=== PATIENT | male | born 1995 | race Caucasian/White ===

== ENCOUNTER 2022-02-12 16:39 | Emergency (ER) | payer OTHER ==
[2022-02-12 17:18] VITALS: TEMP 98
--- NOTE | 2022-02-12 22:03 | ED ---
Neuro HPI - General Chief Complaint: Neuro Symptoms/Deficit Stated Complaint: numbness feet/hands Time Seen by Provider: 02/12/22 22:00 Source: patient, RN notes reviewed, old records reviewed Mode of arrival: ambulatory Limitations: no limitations - History of Present Illness Is the patient presenting with stroke symptoms?: No -: week(s) Initial Comments: This is a 26-year-old male to the ER for evaluation presents today for evaluation of nonspecific neurological lanes. He has no medical history takes no medications does not drink or smoke. Patient comes in with hand and feet and leg paresthesia numbness and feeling. Able to walk and amply without difficulty. Recent losses job going to increased stress. Patient presents with months of these symptoms and presents here today for evaluation. No headache chest pain shortness breath or abdominal pain. No other complaints Location: left arm, right arm, left leg, right leg History of same: Yes Place: home Severity: mild Quality: numb, tingling Improves With: none Worsens With: none On Anticoagulants: No Context: gradual onset Associated Symptoms: denies other symptoms Treatments Prior to Arrival: none - Related Data Allergies/Adverse Reactions: Allergies Allergy/AdvReac Type Severity Reaction Status Date / Time No Known Allergies Allergy Verified 02/12/22 17:18 Review of Systems ROS Statement: Those systems with pertinent positive or pertinent negative responses have been documented in the HPI. ROS Other: All systems not noted in ROS Statement are negative. General Exam Limitations: no limitations General appearance: alert, in no apparent distress Head exam: Present: atraumatic, normocephalic, normal inspection Eye exam: Present: normal appearance, PERRL, EOMI. Absent: scleral icterus, conjunctival injection, periorbital swelling ENT exam: Present: normal exam, mucous membranes moist Neck exam: Present: normal inspection. Absent: tenderness, meningismus, lympha denopathy Respiratory exam: Present: normal lung sounds bilaterally. Absent: respiratory distress, wheezes, rales, rhonchi, stridor Cardiovascular Exam: Present: regular rate, normal rhythm, normal heart sounds. Absent: systolic murmur, diastolic murmur, rubs, gallop, clicks GI/Abdominal exam: Present: soft, normal bowel sounds. Absent: distended, tenderness, guarding, rebound, rigid Extremities exam: Present: normal inspection, full ROM, normal capillary refill. Absent: tenderness, pedal edema, joint swelling, calf tenderness Back exam: Present: normal inspection Neurological exam: Present: alert, oriented X3, CN II-XII intact Psychiatric exam: Present: normal affect, normal mood Skin exam: Present: warm, dry, intact, normal color. Absent: rash Stroke MDM - Lab Data Result diagrams: 02/12/22 22:15 02/12/22 22:15 Lab Results 02/12/22 02/12/22 Range/Units 22:15 22:15 WBC 8.3 (3.8-10.6) k/uL RBC 4.69 (4.30-5.90) m/uL Hgb 14.8 (13.0-17.5) gm/dL Hct 42.4 (39.0-53.0) % MCV 90.3 (80.0-100.0) fL MCH 31.5 (25.0-35.0) pg MCHC 34.9 (31.0-37.0) g/dL RDW 13.9 (11.5-15.5) % Plt Count 300 (150-450) k/uL MPV 8.2 Neutrophils % 55 % Lymphocytes % 30 % Monocytes % 6 % Eosinophils % 7 % Basophils % 1 % Neutrophils # 4.6 (1.3-7.7) k/uL Lymphocytes # 2.4 (1.0-4.8) k/uL Monocytes # 0.5 (0-1.0) k/uL Eosinophils # 0.6 (0-0.7) k/uL Basophils # 0.1 (0-0.2) k/uL Sodium 139 (137-145) mmol/L Potassium 4.4 (3.5-5.1) mmol/L Chloride 109 H (98-107) mmol/L Carbon Dioxide 22 (22-30) mmol/L Anion Gap 8 mmol/L BUN 20 (9-20) mg/dL Creatinine 0.80 (0.66-1.25) mg/dL Est GFR (CKD-EPI)AfAm >90 (>60 ml/min/1.73 sqM) Est GFR (CKD-EPI)NonAf >90 (>60 ml/min/1.73 sqM) Glucose 78 (74-99) mg/dL Calcium 8.9 (8.4-10.2) mg/dL Phosphorus 5.2 H (2.5-4.5) mg/dL Magnesium 2.4 H (1.6-2.3) mg/dL Total Bilirubin 0.6 (0.2-1.3) mg/dL AST 67 H (17-59) U/L ALT 161 H (4-49) U/L Alkaline Phosphatase 79 (38-126) U/L Total Protein 7.2 (6.3-8.2) g/dL Albumin 4.7 (3.5-5.0) g/dL - NIH Stroke Scale 1a. Level of Consciousness: (0) alert 1b. LOC Questions: (0) answers correctly 1c. LOC Commands: (0) performs tasks correctly 2. Best Gaze: (0) normal 3. Visual: (0) no visual loss 4. Facial Palsy: (0) normal symmetrical movement 5a. Motor Arm Left: (0) no drift 5b. Motor Arm Right: (0) no drift 6a. Motor Leg Left: (0) no drift 6b. Motor Leg Right: (0) no drift 7. Limb Ataxia: (0) absent 8. Sensory: (0) normal 9. Best Language: (0) no aphasia 10. Dysarthria: (0) normal 11. Extinction/Inattention: (0) no abnormality - Medical Decision Making 26 male to the emergency room for evaluation of nonspecific neurological complaint. We'll give follow-up with neurology. Patient has no focal neurological findings here in the ER and refusing CT scanning - Radiology Data Radiology results: pending (Refusing) Past Medical History Past Medical History: No Reported History History of Any Multi-Drug Resistant Organisms: None Reported Past Surgical History: No Surgical Hx Reported Past Psychological History: No Psychological Hx Reported Smoking Status: Current every day smoker Past Alcohol Use History: None Reported Past Drug Use History: None Reported Course Vital Signs 02/12/22 12 17:14 23:47 Temperature 98 F Pulse Rate 88 78 Respiratory 20 15 Rate Blood Pressure 97/70 110/68 O2 Sat by Pulse 99 100 Oximetry - Reevaluation(s) Reevaluation #1: 02/12/22 23:59 Medical record is reviewed Reevaluation #2: 02/12/22 23:59 Patient has no change in symptoms here in the ER Reevaluation #3: 02/12/22 23:59 Patient informed of results and questions answered Disposition Clinical Impression: Paresthesia of bilateral legs, Paresthesia of both hands Disposition: HOME SELF-CARE Condition: Good Instructions (If sedation given, give patient instructions): Paresthesia (ED) Is patient prescribed a controlled substance at d/c from ED?: No Referrals: Wesly Naranjo MD [STAFF PHYSICIAN] - 1-2 days Nisa Alvarado MD [REFERRING] - 1-2 days Ha Ching MD [Medical Doctor] - 1-2 days Time of Disposition: 00:00
[2022-02-12] MEDS ORDERED: SODIUM CHLORIDE 0.9% 500 ML 500 ML IV STA (22:06)
[2022-02-12 22:32] LABS: Basophils # (A) 0.1 k/uL (0-0.2); Basophils % (A) 1 %; Eosinophils # (A) 0.6 k/uL (0-0.7); Eosinophils % (A) 7 %; HCT 42.4 % (39.0-53.0); HGB 14.8 gm/dL (13.0-17.5); Lymphocytes # (A) 2.4 k/uL (1.0-4.8); Lymphocytes % (A) 30 %; MCH 31.5 pg (25.0-35.0); MCHC 34.9 g/dL (31.0-37.0); MCV 90.3 fL (80.0-100.0); Mean Platelet Volume 8.2; Monocytes # (A) 0.5 k/uL (0-1.0); Monocytes % (A) 6 %; Neutrophils # (A) 4.6 k/uL (1.3-7.7); Neutrophils % (A) 55 %; Platelet Count 300 k/uL (150-450); RBC 4.69 m/uL (4.30-5.90); RDW 13.9 % (11.5-15.5); WBC 8.3 k/uL (3.8-10.6)
[2022-02-12 22:49] LABS: Potassium 4.4 mmol/L (3.5-5.1)
[2022-02-12 22:50] LABS: ALT 161 U/L (4-49); AST 67 U/L (17-59); African American GFR (CKD) >90 (>60 ml/min/1.73 sqM); Albumin 4.7 g/dL (3.5-5.0); Alkaline Phosphatase 79 U/L (38-126); Anion Gap 8 mmol/L; Blood Urea Nitrogen 20 mg/dL (9-20); Calcium 8.9 mg/dL (8.4-10.2); Carbon Dioxide 22 mmol/L (22-30); Chloride 109 mmol/L (98-107); Glucose 78 mg/dL (74-99); Magnesium 2.4 mg/dL (1.6-2.3); Non-African American GFR(CKD) >90 (>60 ml/min/1.73 sqM); Phosphorus 5.2 mg/dL (2.5-4.5); Sodium 139 mmol/L (137-145); Total Bilirubin 0.6 mg/dL (0.2-1.3); Total Protein 7.2 g/dL (6.3-8.2)
[2022-02-12 23:48] VITALS: BP 110/68; PULSE 78; RESP 15
== END 2022-02-13 01:11 | disposition home or self-care (01) ==
LOC: EC 16:39
DX: R20.2 Paresthesia of skin (principal); F17.200 Nicotine dependence, unspecified, uncomplicated
CPT/HCPCS: 36415; 80053; 83735; 84100; 85025; 99284

== ENCOUNTER 2022-04-14 16:39 | Emergency (ER) | payer OTHER ==
[2022-04-14 16:45] VITALS: BP 142/96; PULSE 114; RESP 20; TEMP 98
--- NOTE | 2022-04-14 17:55 | ED ---
General Adult HPI - General Chief complaint: Psychiatric Symptoms Stated complaint: Mental Health Time Seen by Provider: 04/14/22 16:45 Source: patient, RN notes reviewed, old records reviewed Mode of arrival: ambulatory Limitations: no limitations - History of Present Illness Initial comments: This is a 27-year-old male who presents emergency Department because he states that his stepbrother petitioned him to be here and he was told he had a court order to be here. Patient states she doesn't believe he needs severe. Patient denies suicidal homicidal ideations. Patient denies any paranoia. Patient doesn't believe any once after him. Patient does not hear any voices per patient has not seen any weird or abnormal things. Patient has no physical complaints. Patient thinks he is eating and drinking normally and carrying on about his daily tasks without problem. Patient states he has no psychiatric history whatsoever - Related Data Allergies Allergy/AdvReac Type Severity Reaction Status Date / Time No Known Allergies Allergy Verified 04/14/22 16:45 Review of Systems ROS Statement: Those systems with pertinent positive or pertinent negative responses have been documented in the HPI. ROS Other: All systems not noted in ROS Statement are negative. Past Medical History Past Medical History: No Reported History History of Any Multi-Drug Resistant Organisms: None Reported Past Surgical History: No Surgical Hx Reported Past Psychological History: No Psychological Hx Reported Smoking Status: Current every day smoker Past Alcohol Use History: None Reported Past Drug Use History: None Reported General Exam - General Exam Comments Initial Comments: GENERAL: Patient is well-developed and well-nourished. Patient is nontoxic and well- hydrated and is in no acute distress. ENT: Neck is soft and supple. No significant lymphadenopathy is noted. Oropharynx is clear. Moist mucous membranes. Neck has full range of motion without eliciting any pain. EYES: The sclera were anicteric and conjunctiva were pink and moist. Extraocular movements were intact and pupils were equal round and reactive to light. Eyelids were unremarkable. PULMONARY: Unlabored respirations. Good breath sounds bilaterally. No audible rales rhonchi or wheezing was noted. CARDIOVASCULAR: There is a regular rate and rhythm without any murmurs gallops or rubs. ABDOMEN: Soft and nontender with normal bowel sounds. SKIN: Skin is clear with no lesions or rashes and otherwise unremarkable. NEUROLOGIC: Patient is alert and oriented x3. Cranial nerves II through XII are grossly intact. Motor and sensory are also intact. Normal speech, volume and content. Symmetrical smile. MUSCULOSKELETAL: Normal extremities with adequate strength and full range of motion. No lower extremity swelling or edema. No calf tenderness. LYMPHATICS: No significant lymphadenopathy is noted PSYCHIATRIC: Normal psychiatric evaluation. Normal interpersonal interactions appears func tionally intact in deals appropriately with others. No signs of depression. No signs of anxiety. No delusions. No hallucinations. Limitations: no limitations Course Vital Signs 04/14/22 16:41 Temperature 98.0 F Pulse Rate 114 H Respiratory 20 Rate Blood Pressure 142/96 O2 Sat by Pulse 98 Oximetry Medical Decision Making - Medical Decision Making Was pt. sent in by a medical professional or institution (, JOSE, BAG MACHINE ADJUSTER, urgent care, hospital, or half-way...) When possible be specific @ -No Did you speak to anyone other than the patient for history (EMS, parent, family, police, friend...)? What history was obtained from this source @ -No Did you review nursing and triage notes (agree or disagree)? Why? @ -I reviewed and agree with nursing and triage notes Were old charts reviewed (outside hosp., previous admission, EMS record, old EKG, old radiological studies, urgent care reports/EKG's, half-way records)? Report findings @ -No old charts were reviewed Differential Diagnosis (chest pain, altered mental status, abdominal pain women, abdominal pain men, vaginal bleeding, weakness, fever, dyspnea, syncope, headache, dizziness, GI bleed, back pain, seizure, CVA, palpatations, mental health)? @ -not applicable EKG interpreted by me (3pts min.). @ -As above X-rays interpreted by me (1pt min.). @ -None done CT interpreted by me (1pt min.). @ -None done U/S interpreted by me (1pt. min.). @ -None done What testing was considered but not performed or refused? (CT, X-rays, U/S, labs)? Why? @ -None What meds were considered but not given or refused? Why? @ -None Did you discuss the management of the patient with other professionals (professionals i.e. , PA, BAG MACHINE ADJUSTER, lab, RT, psych nurse, social media marketer, deputy building guard, teacher, staff electronic warfare officer, director of casework services)? Give summary @ -I spoke with the EPS nurse after she had spoke with the patient and the psychiatrist Was smoking cessation discussed for >3mins.? @ -No Was critical care preformed (if so, how long)? @ -No Were there social determinants of health that impacted care today? How? (Homelessness, low income, unemployed, alcoholism, drug addiction, transportation, low edu. Level, literacy, decrease access to med. care, custodial, rehab)? @ -No Was there de-escalation of care discussed even if they declined (Discuss DNR or withdrawal of care, Hospice)? DNR status @ -No What co-morbidities impacted this encounter? (DM, HTN, Smoking, COPD, CAD, Cancer, CVA, ARF, Chemo, Hep., AIDS, mental health diagnosis, sleep apnea, morbid obesity)? @ -None Was patient admitted / discharged? Hospital course, mention meds given and r oute, prescriptions, significant lab abnormalities, going to OR and other pertinent info. @ -Patient will be discharged home. EPS evaluated the patient and spoke with psychiatry if that the patient had no complaints and had no abnormal psychiatric responses it was felt that he home and Undiagnosed new problem with uncertain prognosis? @ -No Drug Therapy requiring intensive monitoring for toxicity (Heparin, Nitro, Insulin, Cardizem)? @ -No Were any procedures done? @ -No Diagnosis/symptom? @ -Psychiatric evaluation Acute, or Chronic, or Acute on Chronic? @ -default Uncomplicated (without systemic symptoms) or Complicated (systemic symptoms)? @ -default Side effects of treatment? @ -No Exacerbation, Progression, or Severe Exacerbation? @ -No Poses a threat to life or bodily function? How? (Chest pain, [place], [place], pneumonia, PE, COPD, DKA, ARF, appy, cholecystitis, CVA, Diverticulitis, Homicidal, Suicidal, threat to staff... and all critical care pts) @ -No - Lab Data Lab Results 04/14/22 Range/Units 18:00 Urine Opiates Screen Not Detected (NotDetected) Ur Oxycodone Screen Not Detected (NotDetected) Urine Methadone Screen Not Detected (NotDetected) Ur Propoxyphene Screen Not Detected (NotDetected) Ur Barbiturates Screen Not Detected (NotDetected) U Tricyclic Antidepress Not Detected (NotDetected) Ur Phencyclidine Scrn Not Detected (NotDetected) Ur Amphetamines Screen Not Detected (NotDetected) U Methamphetamines Scrn Not Detected (NotDetected) U Benzodiazepines Scrn Not Detected (NotDetected) Urine Cocaine Screen Not Detected (NotDetected) U Marijuana (THC) Screen Detected H (NotDetected) Disposition Clinical Impression: Normal psychiatric assessment Disposition: HOME SELF-CARE Condition: Good Is patient prescribed a controlled substance at d/c from ED?: No Referrals: None,Stated [Primary Care Provider] - 1-2 days Time of Disposition: 18:45
[2022-04-14 18:48] LABS: Amphetamine Screen,Urine Not Detected (NotDetected); Barbiturate Screen,Urine Not Detected (NotDetected); Benzodiazepines Screen,Urine Not Detected (NotDetected); Cocaine Screen,Urine Not Detected (NotDetected); Methadone Screen, Urine Not Detected (NotDetected); Opiate Screen,Urine Not Detected (NotDetected); Oxycodone Screen, Urine Not Detected (NotDetected); Phencyclidine Screen,Urine Not Detected (NotDetected); Tricyclic Antidepressant,Urine Not Detected (NotDetected); Urn Cannabinoid Scrn Detected (NotDetected)
== END 2022-04-14 19:21 | disposition home or self-care (01) ==
LOC: EC 16:39
DX: Z04.6 Encounter for general psychiatric examination, requested by authority (principal); F17.200 Nicotine dependence, unspecified, uncomplicated
CPT/HCPCS: 80306; 82075; 99283

== ENCOUNTER 2022-06-02 23:46 | Emergency (ER) | payer OTHER ==
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
[2022-06-03] VITALS: BP 130/75; PULSE 150; RESP 16; TEMP 98.4
[2022-06-03] MEDS ORDERED: LORazepam 2 MG/ML INJ IM STA (02:14)
[2022-06-03] MEDS ORDERED: diphenhydrAMINE 50 MG/ML 1 ML VIAL IM STA (02:14)
[2022-06-03] MEDS ORDERED: HALOPERIDOL LACTATE 5 MG/ML 1 ML VIAL IM STA (02:15)
[2022-06-03] MEDS ORDERED: KETAMINE 50 MG/ML 10 ML VIAL IM ONE (02:32)
== END 2022-06-03 04:19 | disposition left against medical advice (07) ==
LOC: EC 23:46
DX: S00.81XA Abrasion of other part of head, initial encounter (principal); F17.200 Nicotine dependence, unspecified, uncomplicated; Z53.29 Procedure and treatment not carried out because of patient's decision for other reasons; V49.9XXA Car occupant (driver) (passenger) injured in unspecified traffic accident, initial encounter; Y92.410 Unspecified street and highway as the place of occurrence of the external cause
CPT/HCPCS: 96372; 99283

== ENCOUNTER 2022-06-03 02:23 | Inpatient (IN) | payer OTHER ==
[2022-06-03] MEDS ORDERED: KETAMINE 50 MG/ML 10 ML VIAL IM ONE (02:35)
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
[2022-06-03] MEDS ORDERED: SODIUM CHLORIDE 0.9% 1,000 ML IV ONE (03:03)
[2022-06-03 03:15] LABS: Basophils # (A) 0.1 k/uL (0-0.2); Basophils % (A) 1 %; Eosinophils # (A) 0.1 k/uL (0-0.7); Eosinophils % (A) 1 %; HCT 40.7 % (39.0-53.0); HGB 15.1 gm/dL (13.0-17.5); Lymphocytes # (A) 2.3 k/uL (1.0-4.8); Lymphocytes % (A) 14 %; MCH 32.4 pg (25.0-35.0); MCHC 37.1 g/dL (31.0-37.0); MCV 87.2 fL (80.0-100.0); Mean Platelet Volume 7.9; Monocytes # (A) 1.1 k/uL (0-1.0); Monocytes % (A) 7 %; Neutrophils # (A) 12.9 k/uL (1.3-7.7); Neutrophils % (A) 77 %; Platelet Count 336 k/uL (150-450); RBC 4.67 m/uL (4.30-5.90); RDW 13.8 % (11.5-15.5); WBC 16.8 k/uL (3.8-10.6)
[2022-06-03 03:27] LABS: Partial Thromboplastin Time 21.7 sec (22.0-30.0); Prothrombin Time 10.2 sec (9.0-12.0)
[2022-06-03 03:30] LABS: ALT 113 U/L (4-49); AST 108 U/L (17-59); African American GFR (CKD) >90 (>60 ml/min/1.73 sqM); Albumin 4.4 g/dL (3.5-5.0); Alkaline Phosphatase 81 U/L (38-126); Anion Gap 14 mmol/L; Blood Urea Nitrogen 15 mg/dL (9-20); Calcium 8.6 mg/dL (8.4-10.2); Carbon Dioxide 19 mmol/L (22-30); Chloride 107 mmol/L (98-107); Glucose 105 mg/dL (74-99); Non-African American GFR(CKD) >90 (>60 ml/min/1.73 sqM); Potassium 4.2 mmol/L (3.5-5.1); Sodium 140 mmol/L (137-145); Total Bilirubin 0.6 mg/dL (0.2-1.3); Total Protein 7.2 g/dL (6.3-8.2)
[2022-06-03 03:32] LABS: Alcohol 155 mg/dL
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
[2022-06-03] MEDS ORDERED: LORazepam 2 MG/ML INJ IV STA (06:37)
[2022-06-03] MEDS ORDERED: KETOROLAC 15 MG/ML 1 ML VIAL IVP STA (07:33)
[2022-06-03] MEDS ORDERED: AMOXIC-POT CLAV 875-125MG 1 EACH TAB PO STA (07:33)
[2022-06-03] MEDS ORDERED: MAG HYDROX/AL HYDROX/SIMETH 30 ML CUP PO PRN (15:14)
[2022-06-03] MEDS ORDERED: MAGNESIUM HYDROXIDE 2,400 MG/10 ML CUP PO PRN (15:14)
[2022-06-03] MEDS ORDERED: chlorproMAZINE 25 MG/ML 2 ML AMP IM PRN (15:17)
[2022-06-03] MEDS ORDERED: LORazepam 2 MG/ML INJ IM PRN (15:17)
[2022-06-03] MEDS: chlordiazePOXIDE 25 MG CAP PO SCH ×2 (16:14→21:23)
[2022-06-03] MEDS: ACETAMINOPHEN TAB 325 MG TAB PO PRN ×2 (16:14→21:24)
--- NOTE | 2022-06-03 16:25 | P.PN ---
Progress Note - Text Progress Note Date: 06/03/22 Attempted to see the patient today. However, patient refusing examination at the moment. Discussed with nursing, please restart again once patient is more amenable to examination.
[2022-06-04 01:35] LABS: Hepatitis B Core IgM Nonreactive (Nonreactive); Hepatitis B Surface Antigen Nonreactive (Nonreactive)
[2022-06-04 01:36] LABS: Hepatitis A Antibody IgM Nonreactive (Nonreactive); Hepatitis C IgG Antibody Nonreactive (Nonreactive)
[2022-06-04] MEDS: IBUPROFEN 400 MG TAB PO PRN ×2 (08:48→16:51)
[2022-06-04] MEDS: chlordiazePOXIDE 25 MG CAP PO SCH ×3 (08:48→21:07)
[2022-06-04] MEDS: NICOTINE 14MG/24HR PATCH TRANSDERM SCH (08:55)
[2022-06-04] MEDS ORDERED: OLANZapine 2.5 MG TAB PO STA (10:45)
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
[2022-06-04 17:22] LABS: Amphetamine Screen,Urine Not Detected (NotDetected); Barbiturate Screen,Urine Not Detected (NotDetected); Benzodiazepines Screen,Urine Detected (NotDetected); Cocaine Screen,Urine Not Detected (NotDetected); Methadone Screen, Urine Not Detected (NotDetected); Opiate Screen,Urine Not Detected (NotDetected); Oxycodone Screen, Urine Not Detected (NotDetected); Phencyclidine Screen,Urine Not Detected (NotDetected); Tricyclic Antidepressant,Urine Not Detected (NotDetected); Urn Cannabinoid Scrn Not Detected (NotDetected)
[2022-06-04 17:23] LABS: Appearance,Urine Clear (Clear); Bilirubin,Urine Negative (Negative); Blood,Urine Negative (Negative); Color,Urine Colorless; Glucose,Urine (UA) Negative (Negative); Ketones,Urine Negative (Negative); Leukocyte Esterase,Urine Negative (Negative); Nitrite,Urine Negative (Negative); Protein,Urine Negative (Negative); Specific Gravity,Urine 1.004 (1.001-1.035); Urobilinogen,Urine <2.0 mg/dL (<2.0)
[2022-06-04] MEDS: OLANZapine ODT 5 MG TAB PO SCH (21:07)
[2022-06-04] MEDS: hydrOXYzine pamoate 25 MG CAP PO PRN (21:07)
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
[2022-06-05] MEDS: hydrOXYzine pamoate 25 MG CAP PO PRN (00:58)
[2022-06-05] MEDS: OLANZapine ODT 5 MG TAB PO SCH ×2 (09:28→21:15)
[2022-06-05] MEDS: NICOTINE 14MG/24HR PATCH TRANSDERM SCH (09:28)
[2022-06-05] MEDS: THIAMINE 100 MG TAB PO SCH (09:28)
[2022-06-05] MEDS: chlordiazePOXIDE 25 MG CAP PO SCH ×3 (09:28→21:15)
[2022-06-05] MEDS: IBUPROFEN 400 MG TAB PO PRN (09:31)
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
[2022-06-05] MEDS: chlorproMAZINE 25 MG TAB PO PRN (21:15)
[2022-06-06] MEDS: IBUPROFEN 400 MG TAB PO PRN ×2 (06:07→15:52)
[2022-06-06] MEDS: ACETAMINOPHEN TAB 325 MG TAB PO PRN (06:07)
[2022-06-06] MEDS: OLANZapine ODT 5 MG TAB PO SCH ×2 (08:24→20:59)
[2022-06-06] MEDS: chlordiazePOXIDE 25 MG CAP PO SCH ×2 (08:24→15:50)
[2022-06-06] MEDS: THIAMINE 100 MG TAB PO SCH (08:24)
[2022-06-06] MEDS: NICOTINE 14MG/24HR PATCH TRANSDERM SCH (08:26)
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
[2022-06-06] MEDS: chlorproMAZINE 25 MG TAB PO PRN (20:59)
[2022-06-07] MEDS: OLANZapine ODT 5 MG TAB PO SCH (08:34)
[2022-06-07] MEDS: THIAMINE 100 MG TAB PO SCH (08:34)
[2022-06-07] MEDS: NICOTINE 14MG/24HR PATCH TRANSDERM SCH (08:35)
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
[2022-06-07] MEDS: ACETAMINOPHEN TAB 325 MG TAB PO PRN (15:19)
[2022-06-07] MEDS: OLANZapine ODT 10 MG TAB PO SCH (21:28)
[2022-06-08 04:24] VITALS: BP 126/72; PULSE 98; RESP 18; TEMP 96.6
[2022-06-08] MEDS: ACETAMINOPHEN TAB 325 MG TAB PO PRN ×3 (04:34→16:25)
[2022-06-08] MEDS ORDERED: OLANZapine ODT 5 MG TAB PO SCH (09:00)
[2022-06-08] MEDS: THIAMINE 100 MG TAB PO SCH (09:09)
[2022-06-08] MEDS: NICOTINE 14MG/24HR PATCH TRANSDERM SCH (09:09)
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
[2022-06-08] MEDS: OLANZapine ODT 10 MG TAB PO SCH (19:41)
[2022-06-08] MEDS: IBUPROFEN 400 MG TAB PO PRN (19:41)
[2022-06-09] MEDS ORDERED: OLANZapine ODT 5 MG TAB PO SCH (09:00)
[2022-06-09] MEDS: NICOTINE 14MG/24HR PATCH TRANSDERM SCH ×2 (09:12→09:14)
[2022-06-09] MEDS: THIAMINE 100 MG TAB PO SCH (09:12)
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
== END 2022-06-09 18:09 | disposition home or self-care (01) | DRG 885 ==
LOC: EC 02:23 → 3MHU 15:12
PROVIDERS: ADMIT Psychiatry & Neurology Psychiatry; ATTEND Psychiatry & Neurology Psychiatry
DX: F23 Brief psychotic disorder (principal); S06.1XAA Traumatic cerebral edema with loss of consciousness status unknown, initial encounter; J98.11 Atelectasis; F14.10 Cocaine abuse, uncomplicated; F17.290 Nicotine dependence, other tobacco product, uncomplicated; F18.10 Inhalant abuse, uncomplicated; S02.2XXA Fracture of nasal bones, initial encounter for closed fracture; V89.2XXA Person injured in unspecified motor-vehicle accident, traffic, initial encounter; Y90.6 Blood alcohol level of 120-199 mg/100 ml; Y92.410 Unspecified street and highway as the place of occurrence of the external cause; Z78.1 Physical restraint status; Z20.822 Contact with and (suspected) exposure to COVID-19
CPT/HCPCS: 12011; 36415; 70450; 70486; 71045; 71260; 72125; 72170; 74177; 80053; 80074; 80306; 80320; 81003; 84443; 84484; 85025; 85610; 85730; 86850; 86900; 86901; 87635; 96361; 96372; 96374; 99285